=== PATIENT | female | born 1975 | race Caucasian/White ===

== ENCOUNTER 2017-03-01 13:01 | Emergency (ER) | payer BC, OTHER ==
[2017-03-01 13:35] VITALS: BP 113/70; PULSE 73; RESP 16; TEMP 96.9; O2SAT 98
--- NOTE | 2017-03-01 13:37 | PD ---
HPI Chief Complaint: Psychiatric Symptoms Time Seen by Provider: 13:25 Travel History International Travel<30 days: No Contact w/Intl Traveler<30days: No Traveled to known affect area: No History of Present Illness HPI 42-year-old female presents under Agrawal act originally initiated by the [employer] did not sign. Therefore another Agrawal act was filled by a psychiatrist at [facility]. Reportedly the patient was involved in an argument with her last night. She took 20-30 tablets of Klonopin and drank half a bottle for him. She was initially seen at [facility] where she was medically cleared. She was then transferred here for psychiatric evaluation under a agrawal act. Per her Agrawal act paperwork she has a history of bipolar disorder. The patient denies this. She currently reports that she feels "great" and she has "the power of God on my side." She denies any suicidal or homicidal thoughts currently. She denies any drug use. She denies any hallucinations. She has no medical complaints at this time. PFSH Past Medical History ?: Not Social History Alcohol Use: Yes Tobacco Use: Yes Allergies-Medications (Allergen,Severity, Reaction): Coded Allergies: Sulfa (Verified Allergy, Unknown, 03/01/17) Review of Systems Except as stated in HPI: all other systems reviewed are Neg Physical Exam Narrative GENERAL: Well developed well-nourished female in no acute distress SKIN: Warm and dry. HEAD: Atraumatic. Normocephalic. EYES: Pupils equal and round. No scleral icterus. No injection or drainage. ENT: No nasal bleeding or discharge. Mucous membranes pink and moist. NECK: Trachea midline. No JVD. CARDIOVASCULAR: Regular rate and rhythm. No murmur appreciated. RESPIRATORY: No accessory muscle use. Clear to auscultation. Breath sounds equal bilaterally. GASTROINTESTINAL: Abdomen soft, non-tender, nondistended. Hepatic and splenic margins not palpable. MUSCULOSKELETAL: No obvious deformities. No clubbing. No cyanosis. No edema. NEUROLOGICAL: Awake and alert. No obvious cranial nerve deficits. Motor grossly within normal limits. Normal speech. PSYCHIATRIC: Somewhat flat affect, insight and judgment appear fair. Data Data Last Documented VS Vital Signs Date Time Temp Pulse Resp B/P Pulse Ox O2 Delivery O2 Flow Rate FiO2 03/01/17 13:35 96.9 73 16 113/70 98 Room Air MDM Medical Decision Making Medical Screen Exam Complete: Yes Emergency Medical Condition: Yes Medical Record Reviewed: Yes Differential Diagnosis Adjustment reaction, substance induced mood disorder, benzodiazepine overdose, acute psychosis, bipolar disorder Narrative Course 42-year-old female presents under Agrawal act for psychiatric evaluation. She was medically cleared at [facility] and transferred here. Review of her lab work reveals a unremarkable CBC, CMP, alcohol level was 41, Tylenol and salicylate levels were normal. Mental health screening discussed with the patient. Psychiatric screen ordered. The patient is medically cleared for psychiatric disposition. Diagnosis Primary Impression: Medical clearance for psychiatric admission Zander Pulido Mar 01, 2017 13:37
--- NOTE | 2017-03-01 13:49 | PD ---
History of Present Illness Chief Complaint: Psychiatric Symptoms Time Seen by Provider: 13:30 Travel History International Travel<30 Days: No Contact w/Intl Traveler<30days: No Known affected area: No Legal Status Legal Status: Agrawal Act Agrawal Act Signed By: History of Present Illness: This is a 42-year-old female presenting under a Agrawal act from [facility] for overdosing on a small amount of Klonopin. This physician spoke to the patient's nurse regarding her current and recent behavior. This physician also interviewed the patient. The patient indicates she was intoxicated last night when she took the Klonopin. She reportedly felt unappreciated by her significant other and her children. She states she was going to kill herself in order to make her significant other feel bad. She now recognizes this was an inappropriate thing to do. She does not wish to and would like to work things out with her partner. She also wants to return home to her children. She denies any suicidal or homicidal ideation, plan or intent. She has no psychotic symptoms. Her cognition is intact. She is no longer intoxicated. She is verbally sudeep for safety. PFSH Past Medical History Medical History: Denies Significant Hx ?: Not Psychiatric History Psychiatric History Hx Psychiatric Treatment: Denied History of Inpatient Treatment: No Guns or firearms in home: No Social History Hx Alcohol Use: Yes Hx Tobacco Use: No Hx Substance Use: No Substance Use Type: Alcohol Hx of Substance Use Treatment: No Allergies-Medications (Allergen,Severity, Reaction): Coded Allergies: Sulfa (Verified Allergy, Unknown, 03/01/17) Review of Systems Except as stated in HPI: all other systems reviewed are Neg Exam Alert: Yes [place]: Person, Place, Date, Situation Mood: Calm Affect: Appropriate Speech: Clear, Logical Eye Contact: Normal Memory Intact: Immediate, Recent, Remote Insight/Judgement Adequate MDM Medical Decision Making Medical Record Reviewed: Yes Assessment/Plan Although the patient did make a overdose/suicide attempt, she states it was designed to hurt the feelings of her significant other. She was also intoxicated with alcohol at the time and this physician feels the alcohol aggravated and underlying adjustment disorder reaction with the significant other. Patient was advised to discontinue alcohol use and to seek therapy with her spouse. Although the patient remains at some risk for discharge, at this point this physician feels she no longer meets Agrawal act criteria and she does not want to be admitted. As she is willing to seek outpatient treatment, least restrictive alternative applies. Patient is therefore being discharged home with her significant other. Diagnosis Primary Impression: Adjustment disorder with mixed disturbance of emotions and conduct Additional Impression: Alcohol abuse Problem Qualifiers You Cardona MD Mar 01, 2017 13:49
== END 2017-03-01 15:30 | disposition home or self-care (01) ==
LOC: NEPJ 13:01
DX: F43.25 Adjustment disorder with mixed disturbance of emotions and conduct (principal); F10.10 Alcohol abuse, uncomplicated; F31.9 Bipolar disorder, unspecified; Z72.0 Tobacco use; Z88.2 Allergy status to sulfonamides
CPT/HCPCS: 99284